=== PATIENT | male | born 1970 | race Caucasian/White ===

== ENCOUNTER 2021-09-18 11:00 | Emergency (ER) | payer OTHER ==
[~2021-09-18] VITALS: Ht 172 cm; Wt 91.0 kg
[2021-09-18 11:31] VITALS: BP 102/64
--- NOTE | 2021-09-18 12:02 | ED General ---
General Chief Complaint: Dizziness/Syncope Nursing Triage Note: Patient has presented to ER with cc of feeling weak. Patient reports this weakness feeling for the last 2 weeks. Yesterday he had vomited and yesterday he felt faint at times. He has been driking pedialyte to replace his fluids. Today he has presented to ER with still feeling weak today. He is rather vague about his complaints. History of Present Illness Date Seen by Provider: Sep 18, 2021 Time Seen by Provider: 11:50 Initial Comments 50-year-old male here just feeling kind of weak. States he was vomiting yesterday. Patient took some Zofran to help with that. He thinks he is a little bit low. Does have history of possible heart failure. Significant other mentioned his it ejection fraction was a little bit lower but they were not sure how much. Does follow-up with [facility]. Patient is on spironolactone. Patient does not have any swelling. Denies any chest pain or shortness of breath. No cough. Not feeling dizzy today but was feeling dizzy yesterday. Allergies and Home Medications Allergies Coded Allergies: No Known Drug Allergies (Unverified , 09/18/21) Patient Home Medication List Home Medication List Reviewed: Yes Review of Systems Review of Systems Constitutional: see HPI Past Vfvhkrb-Vjjsna-Heqenr Hx Patient Social History Tobacco Use?: No Use of E-Cig and/or Vaping dev: No Substance use?: Yes Substance type: Marijuana Substance frequency: Daily Alcohol Use?: No Physical Exam Vital Signs Vital Signs - First Documented 09/18/21 11:31 Temp 36.4 Pulse 74 Resp 18 B/P (MAP) 102/64 (77) Pulse Ox 97 Capillary Refill : Height, Weight, BMI Height: '" Weight: lbs. oz. kg; 30.00 BMI Method: General Appearance: No Apparent Distress, WD/WN HEENT: PERRL/EOMI, Pharynx Normal Neck: Non Tender, Supple Respiratory: Lungs Clear, Normal Breath Sounds Cardiovascular: Regular Rate, Rhythm, No Edema, No Murmur Neurologic/Psychiatric: Alert, Normal Mood/Affect Skin: Normal Color, Warm/Dry Progress/Results/Core Measures Suspected Sepsis SIRS Temperature: Pulse: 74 Respiratory Rate: 18 Laboratory Tests 09/18/21 12:10: White Blood Count 5.9 Blood Pressure 102 /64 Mean: 77 Laboratory Tests 09/18/21 12:10: Creatinine 1.21, Platelet Count 210, Total Bilirubin 0.6 Results/Orders Lab Results Laboratory Tests Test 09/18/21 12:10 Range/Units White Blood Count 5.9 4.3-11.0 10^3/uL Red Blood Count 3.72 L 4.30-5.52 10^6/uL Hemoglobin 11.6 L 13.3-17.7 g/dL Hematocrit 34 L 40-54 % Mean Corpuscular Volume 90 80-99 fL Mean Corpuscular Hemoglobin 31 25-34 pg Mean Corpuscular Hemoglobin Concent 35 32-36 g/dL Red Cell Distribution Width 12.4 10.0-14.5 % Platelet Count 210 130-400 10^3/uL Mean Platelet Volume 10.3 9.0-12.2 fL Immature Granulocyte % (Auto) 0 % Neutrophils (%) (Auto) 57 42-75 % Lymphocytes (%) (Auto) 30 12-44 % Monocytes (%) (Auto) 10 0-12 % Eosinophils (%) (Auto) 2 0-10 % Basophils (%) (Auto) 1 0-10 % Neutrophils # (Auto) 3.4 1.8-7.8 10^3/uL Lymphocytes # (Auto) 1.8 1.0-4.0 10^3/uL Monocytes # (Auto) 0.6 0.0-1.0 10^3/uL Eosinophils # (Auto) 0.1 0.0-0.3 10^3/uL Basophils # (Auto) 0.0 0.0-0.1 10^3/uL Immature Granulocyte # (Auto) 0.0 0.0-0.1 10^3/uL Sodium Level 141 135-145 MMOL/L Potassium Level 4.2 3.6-5.0 MMOL/L Chloride Level 106 98-107 MMOL/L Carbon Dioxide Level 26 21-32 MMOL/L Anion Gap 9 5-14 MMOL/L Blood Urea Nitrogen 19 H 7-18 MG/DL Creatinine 1.21 0.60-1.30 MG/DL Estimat Glomerular Filtration Rate 73 BUN/Creatinine Ratio 16 Glucose Level 103 70-105 MG/DL Calcium Level 9.2 8.5-10.1 MG/DL Corrected Calcium 8.8 8.5-10.1 MG/DL Total Bilirubin 0.6 0.1-1.0 MG/DL Aspartate Amino Transf (AST/SGOT) 16 5-34 U/L Alanine Aminotransferase (ALT/SGPT) 15 0-55 U/L Alkaline Phosphatase 81 40-136 U/L Pro-B-Type Natriuretic Peptide 67.2 <75.0 PG/ML Total Protein 6.7 6.4-8.2 GM/DL Albumin 4.5 3.2-4.5 GM/DL My Orders Orders - ALYCE SAINI MD Cbc With Automated Diff (09/18/21 11:57) Comprehensive Metabolic Panel (09/18/21 11:57) Probnp Fs (09/18/21 11:57) Ns Iv 1000 Ml (Sodium Chloride 0.9%) (09/18/21 12:15) Ekg Tracing (09/18/21 13:29) Vital Signs/I&O 09/18/21 11:31 Temp 36.4 Pulse 74 Resp 18 B/P (MAP) 102/64 (77) Pulse Ox 97 Capillary Refill : Blood Pressure Mean: 77 Progress Note : Time: 15:19 Progress Note Patient feeling better after 1 L IV fluids. Normal saline. We will plan to discharge. Follow-up with primary care physician. ER if needed Departure Impression Primary Impression: Dizziness Disposition: 01 HOME, SELF-CARE Condition: Stable Departure-Patient Inst. Decision time for Depature: 15:20 Patient Instructions: Dehydration, Adult ED ALYCE SAINI MD Sep 18, 2021 12:02
[2021-09-18] MEDS ORDERED: NS IV 1000 ML 1,000 ML IV SCH (12:15)
[2021-09-18 12:28] LABS: BASOPHILS % (AUTO) 1 % (0-10); EOSINOPHILS # (AUTO) 0.1 10^3/uL (0.0-0.3); EOSINOPHILS % (AUTO) 2 % (0-10); HEMATOCRIT 34 % (40-54); HEMOGLOBIN 11.6 g/dL (13.3-17.7); LYMPHOCYTES # (AUTO) 1.8 10^3/uL (1.0-4.0); LYMPHOCYTES % (AUTO) 30 % (12-44); MEAN CORPUSCULAR HEMOGLOBIN 31 pg (25-34); MEAN CORPUSCULAR HGB CONC 35 g/dL (32-36); MEAN CORPUSCULAR VOLUME 90 fL (80-99); MEAN PLATELET VOLUME 10.3 fL (9.0-12.2); MONOCYTES # (AUTO) 0.6 10^3/uL (0.0-1.0); MONOCYTES % (AUTO) 10 % (0-12); NEUTROPHILS # (AUTO) 3.4 10^3/uL (1.8-7.8); NEUTROPHILS % (AUTO) 57 % (42-75); PLATELET COUNT 210 10^3/uL (130-400); WHITE BLOOD COUNT 5.9 10^3/uL (4.3-11.0)
[2021-09-18 12:54] LABS: BILIRUBIN,TOTAL 0.6 MG/DL (0.1-1.0); CALCIUM 9.2 MG/DL (8.5-10.1); CREATININE SERUM 1.21 MG/DL (0.60-1.30); POTASSIUM 4.2 MMOL/L (3.6-5.0); TOTAL PROTEIN 6.7 GM/DL (6.4-8.2)
[2021-09-18 12:55] LABS: ALBUMIN 4.5 GM/DL (3.2-4.5)
== END 2021-09-18 15:25 | disposition home or self-care (01) ==
LOC: ER FS 11:04
DX: R42 Dizziness and giddiness (principal); Z28.310 Unvaccinated for COVID-19
CPT/HCPCS: 36415; 80053; 83880; 85025; 93005